=== PATIENT | male | born 1985 | race Caucasian/White ===

== ENCOUNTER → 2019-10-03 | Outpatient (CLI) | payer OTHER ==
--- NOTE | 2019-10-03 14:08 | RAD ---
Right Lower Extremity Venous Doppler Ultrasound History: Right leg pain Comparison: None Procedure: Color flow, duplex, spectral analysis and 2D images are obtained with and without compression in the area of the common femoral vein, superficial femoral vein - femoral vein junction, main femoral vein (superficial femoral vein) and popliteal vein. Veins of the proximal calf are also imaged. Findings: There is normal duplex flow, color flow and compressibility of all visualized vein segments. No evidence of deep venous thrombus is present. Impression: No evidence of DVT. Electronically signed by: Tonio Fields III, MD (10/03/2019 2:05 PM) [id number]
== END | disposition home or self-care (01) ==
LOC: US 13:38
PROVIDERS: ATTEND Family Medicine
DX: M25.551 Pain in right hip (principal); M79.604 Pain in right leg
CPT/HCPCS: 93971